=== PATIENT | female | born 1950 | race African-American/Black ===

== ENCOUNTER 2019-12-24 13:52 | Emergency (ER) | payer OTHER ==
--- NOTE | 2019-12-24 13:53 | UC ---
Complaint Female HPI - HPI Summary HPI Summary: 69 yo female presents with vaginal bleeding. She tells me that about 3-4 months ago she noticed some vaginal spotting that resolved within 24 hours. She had no other associated symptoms. Today she tells me that this morning she has had vaginal spotting with bright blood twice - noticed on the toilet paper when wiping during urinating. This has made her, admittedly, anxious and she feels slightly dizzy and generally "off". She has an appt with her PCP tomorrow for a separate issue. She states she has had a partial hysterectomy due to an "infection" many years ago, but is unsure which [employer]IST organs still remain. She states she has a PAP smear yearly and has had "dysplasia" in the past. She denies personal or family hx of [employer] TECH[employer]IST cancers. Currently is having some mild pelvic cramping. She denies fever, chills, headache, numbness, weakness, SOB, chest pain, abdominal pain, n/v/d/c, dysuria, back pain. Pt states she has not had a menstrual period in >5years - History Of Current Complaint Stated Complaint: DIZZINESS Time Seen by Provider: 12/24/19 13:53 Hx Obtained From: Patient Onset/Duration: Sudden Onset Severity Currently: None - Allergies/Home Medications Allergies/Adverse Reactions: Allergies Allergy/AdvReac Type Severity Reaction Status Date / Time ibuprofen Allergy GI Upset Verified 12/24/19 13:56 NSAIDS (Non-Steroidal Allergy Difficulty Verified 12/24/19 13:56 Anti-Inflamma Breathing Penicillins Allergy Diarrhea Verified 12/24/19 13:56 PMH/Surg Hx/FS Hx/Imm Hx - Additional Past Medical History Additional PMH: None - Surgical History Surgical History: Yes Surgery Procedure, Year, and Place: partial hysterectomy; Cyst removed from clavicle, COLONOSCOPY - Family History Known Family History: Positive: Hypertension, Diabetes - Social History Alcohol Use: None Substance Use Type: None Smoking Status (MU): Former Smoker Type: Cigarettes When Did the Patient Quit Smoking/Using Tobacco: 38 yrs ago Review of Systems All Other Systems Reviewed And Are Negative: No Constitutional: Positive: Negative Skin: Positive: Negative Respiratory: Positive: Negative Cardiovascular: Positive: Negative Gastrointestinal: Positive: Negative Genitourinary: Positive: Other - Vaginal bleeding Neurological: Positive: Negative Psychological: Positive: Negative Physical Exam - Summary Physical Exam Summary: GENERAL: NAD. WDWN. No pain distress. SKIN: No rashes, sores, lesions, or open wounds. NECK: Supple. Nontender. No lymphadenopathy. CHEST: CTAB. No r/r/w. No accessory muscle use. Breathing comfortably and in no distress. CV: RRR. Pulses intact. Cap refill <2seconds ABDOMEN: Soft. NTTP. No distention or guarding. No CVA tenderness. Bowel sounds present NEURO: A&Ox3. CN: II: Peripheral de [place] paz intact. Vision normal. III, IV, : EOMI. No nystagmus. PERRLA. V: Sensations intact and symmetric. Opens mouth and clenches teeth. VII: No facial asymmetry. Forehead wrinkles. Grins, shuts eyes, frowns, puffs cheeks. VIII: Hearing intact to finger rub. IX, X: Swallows and coughs. Uvula midline. XI: Shrugs shoulders. Turns head against resistance. XII : No tongue deviation [id number] are intact. Gait with normal base. Romberg : maintains balance, no pronator drift. Normal speech. No facial drooping. PSYCH: Age appropriate behavior. Triage Information Reviewed: Yes Vital Signs: Vital Signs: Temp Pulse Resp BP Pulse Ox 98.8 F 70 18 156/80 100 12/24/19 13:58 12/24/19 13:58 12/24/19 13:58 12/24/19 13:58 12/24/19 13:58 Laboratory Tests 12/24/19 14:23 POC Urine Color Yellow POC Urine Clarity Clear POC Urine pH 7.0 POC Ur Specif [place] >= 1.030 POC Urine Protein Negative POC Ur Glucose (UA) Negative POC Urine Ketones Negative POC Urine Blood Trace-intact POC Urine Nitrite Negative POC Urine Bilirubin Negative POC Urine Urobilinogen 0.2 POC U Leukocyte Esteras Negative Vital Signs Reviewed: Yes Pelvic Exam: Positive: External Exam Normal, Other - Exam assisted by Ifeoma BRIZUELA. Negative: No Cerv. Motion Tender, Active Bleeding, Blood, Cervicitis, Discharge, Lesions, Mass, Tender w/ Cervical Motion, Tender Adnexa, Tender Uterus, Ulcers Diagnostics - Radiology Transvaginal US Radiology Interpretation Completed By: Radiologist Summary of Radiographic Findings: IMPRESSION: 1. STATUS POST HYSTERECTOMY. 2. THE OVARIES ARE NOT VISUALIZED. THE PATIENT MAY BE STATUS POST OOPHORECTOMY. 3. NO ACUTE SONOGRAPHIC EVALUATION OF THE VISUALIZED PORTION OF THE PELVIS. Complaint Female Dx - Course Course Of Treatment: UA as above. Exam normal. Will order for transvaginal US to further eval. US as above. Discussed with pt. She did show me a cell phone picture of the blood she noticed on the toilet tissue and it is a very light pink and is quite faint. I am unsure the cause of this, but it could be vaginal or urine related. I encouraged her to f/u with her PCP as scheduled tomorrow and with her OBGYN for further evaluation. Urine culture will be sent from today. - Differential Dx/Diagnosis Provider Diagnosis: Vaginal bleeding Discharge ED - Sign-Out/Discharge Documenting (check all that apply): Patient Departure All imaging exams completed and their final reports reviewed: Yes - Discharge Plan Condition: Stable Disposition: HOME Referrals: Darby Ramirez NP [Primary Care Provider] - Additional Instructions: If you develop a fever, shortness of breath, chest pain, new or worsening symptoms - please call your PCP or go to the ED immediately. Your blood pressure was high at todays visit. Please see your primary provider within 4 weeks for recheck and re-evaluation. Your exam and ultrasound today were normal and did not reveal a cause of your vaginal bleeding. I recommend that you follow up with your primary doctor tomorrow as scheduled for a recheck. - Billing Disposition and Condition Condition: STABLE Disposition: Home
[2019-12-24 14:01] VITALS: BP 156/80
--- NOTE | 2019-12-26 13:46 | UC ---
- Progress Note Progress Note: PLEASE CALL PATIENT. URINE CULTURE GREW A FEW COLONIES OF GROUP B STREP. THIS IS NOT NECESSARILY CLINICALLY SIGNIFICANT. PLEASE ENSURE SHE FOLLOWED UP WITH HER PCP AND IS FEELING IMPROVED. Course/Dx - Diagnoses Provider Diagnoses: Vaginal bleeding Discharge ED - Sign-Out/Discharge Documenting (check all that apply): Post-Discharge Follow Up All imaging exams completed and their final reports reviewed: Yes - Discharge Plan Condition: Stable Disposition: HOME Referrals: Darby Ramirez NP [Primary Care Provider] - Additional Instructions: If you develop a fever, shortness of breath, chest pain, new or worsening symptoms - please call your PCP or go to the ED immediately. Your blood pressure was high at todays visit. Please see your primary provider within 4 weeks for recheck and re-evaluation. Your exam and ultrasound today were normal and did not reveal a cause of your vaginal bleeding. I recommend that you follow up with your primary doctor tomorrow as scheduled for a recheck. - Billing Disposition and Condition Condition: STABLE Disposition: Home
== END 2019-12-24 15:35 | disposition home or self-care (01) ==
LOC: UCEAST 13:52
DX: N93.9 Abnormal uterine and vaginal bleeding, unspecified (principal); R42 Dizziness and giddiness; Z88.8 Allergy status to other drugs, medicaments and biological substances; Z90.710 Acquired absence of both cervix and uterus; Z88.6 Allergy status to analgesic agent; Z88.0 Allergy status to penicillin; Z87.891 Personal history of nicotine dependence
CPT/HCPCS: 76830; 81003; 87077; 87086; 99212; G0463